=== PATIENT | female | born 1990 | race Caucasian/White ===

== ENCOUNTER 2018-04-08 09:57 | Emergency (ER) | payer MEDICAID ==
[~2018-04-08] VITALS: Ht 162.6 cm; Wt 84.8 kg
[2018-04-08 10:08] VITALS: BP 110/41
[2018-04-08 10:49] LABS: BARBITURATE, URINE NEG. ng/ml (NEG <=200); BENZODIAZEPINE, URINE NEG. ng/mL (NEG <=200); CANNABINOID, URINE NEG. ng/mL (NEG <=50); COCAINE, URINE NEG. ng/mL (NEG <=300); OPIATE, URINE NEG. ng/mL (NEG <=2000); PHENCYCLIDINE SCREEN,URINE NEG. ng/mL (NEG <=25)
[2018-04-08 11:07] LABS: BILIRUBIN,URINE NEGATIVE (NEGATIVE); COLOR,URINE YELLOW (YELLOW); NITRITE, URINE NEGATIVE (NEGATIVE); UGLUCOSE NEGATIVE (NEGATIVE)
[2018-04-08 11:08] LABS: APPEARANCE,URINE HAZY (CLEAR)
[2018-04-08 11:09] LABS: RBC,URINE 3-10 (FEW) /HPF (0-5)
[2018-04-08 11:11] LABS: BLOOD, URINE 1+ (NEGATIVE); LEUKOCYTE ESTERASE ,URINE 1+ (NEGATIVE)
[2018-04-08] MEDS ORDERED: LEVOFLOXACIN 500 MG TAB PO ONE (11:15)
[2018-04-08 11:41] VITALS: BP 117/71
== END 2018-04-08 11:41 | disposition home or self-care (01) ==
LOC: MED 09:57
DX: N39.0 Urinary tract infection, site not specified (principal); N30.91 Cystitis, unspecified with hematuria; F41.9 Anxiety disorder, unspecified
CPT/HCPCS: 80305; 81001; 81025; 87086; 99283